=== PATIENT | female | born 1960 | race Caucasian/White ===

== ENCOUNTER 2021-01-08 01:23 | Inpatient (IN) | payer BC, MEDICARE ==
[~2021-01-08] VITALS: Ht 152.4 cm; Wt 81.8 kg
[2021-01-08] MEDS ORDERED: heparin 25,000 UNIT/250ml bag 250 ML IV SCH (01:30)
[2021-01-08] MEDS ORDERED: heparin 10,000 units/1 ML INJ IV PRN (01:30)
[2021-01-08 01:52] LABS: BASOPHILS # (AUTO) 0.1 X10'3 (0-0.2); BASOPHILS % (AUTO) 0.7 % (0-1); EOSINOPHILS % (AUTO) 0 % (0-6); HEMATOCRIT 32.5 % (35.0-45.0); HEMOGLOBIN 10.6 g/dl (12.0-16.0); LYMPHOCYTES # (AUTO) 1.5 X10'3 (1.1-4.8); LYMPHOCYTES % (AUTO) 14.7 % (21-51); MEAN CORPUSCULAR HEMOGLOBIN 26.7 PG (27.0-31.0); MEAN CORPUSCULAR HGB CONC 32.7 g/dL (33.0-36.5); MEAN CORPUSCULAR VOLUME 81.8 FL (78-98); MEAN PLATELET VOLUME 7.8 FL (7.4-10.4); MONOCYTES # (AUTO) 0.4 X10'3 (0-0.9); MONOCYTES % (AUTO) 3.8 % (2-12); NEUTROPHILS # (AUTO) 8.4 X10'3 (1.8-7.7); NEUTROPHILS % (AUTO) 80.8 % (42-75); PLATELET COUNT 338 X10'3 (140-440); RED BLOOD COUNT 3.97 X10'6 (4.20-5.60); RED CELL DISTRIBUTION WIDTH 15.2 % (11.5-14.5); WHITE BLOOD COUNT 10.4 X10'3 (4.5-11.0)
[2021-01-08 02:05] LABS: PARTIAL THROMBOPLASTIN TIME 28 SECONDS (22-32)
[2021-01-08 02:09] LABS: ALANINE AMINOTRANSFERASE 30 U/L (12-78); ALBUMIN 2.6 G/DL (3.4-5.0); ALBUMIN/GLOBULIN RATIO 0.5 (1.1-1.5); ALKALINE PHOSPHATASE 128 IU/L (46-116); ANION GAP 12 (8-16); ASPARTATE AMINO TRANSFERASE 28 U/L (10-37); BILIRUBIN,TOTAL 0.4 MG/DL (0.1-1.0); BLOOD UREA NITROGEN 26 MG/DL (7-18); BUN/CREATININE RATIO 22.6 (6.6-38.0); CALCIUM 8.6 MG/DL (8.5-10.1); CHLORIDE 99 MMOL/L (99-107); CREATININE 1.15 MG/DL (0.40-0.90); GLUCOSE 351 MG/DL (70-104); POTASSIUM 3.9 MMOL/L (3.5-5.1); SODIUM 139 MMOL/L (135-145); TOTAL CARBON DIOXIDE 27.6 MMOL/L (24-32); TOTAL PROTEIN 7.5 G/DL (6.4-8.2); eGFR 48 ML/MIN
[2021-01-08 02:16] LABS: MAGNESIUM 1.8 MG/DL (1.5-2.4)
[2021-01-08] MEDS ORDERED: insulin regular, human 10 units/0.1 ml syringe IV ONE (02:35)
[2021-01-08] MEDS ORDERED: potassium Cl 20 mEq SR tablet PO PRN ×2 (03:15)
[2021-01-08] MEDS ORDERED: acetaminophen 325mg tablet PO PRN (03:15)
[2021-01-08] MEDS ORDERED: PERFLUTREN PROTEIN-A MICROSPHR (Optison) 0.22 MG/ML 3ML VIAL IV PRN (03:15)
[2021-01-08] MEDS ORDERED: potassium Cl 40MEQ/1/2NS 520ml 520 ML IV PRN ×2 (03:15)
[2021-01-08] MEDS ORDERED: magnesium hydroxide 30ml (MOM) UD suspension PO PRN (03:15)
[2021-01-08] MEDS ORDERED: ondansetron/PF 4mg/2ml inj IV PRN (03:15)
[2021-01-08] MEDS ORDERED: mag hydrox/Alum hydrox/simeth 30ml oral suspension PO PRN (03:15)
[2021-01-08] MEDS ORDERED: metoprolol tartrate 50mg tablet PO ONE (03:20)
[2021-01-08] MEDS: nitroGLYCERIN-Tridil 50MG/D5W 250 ML IV SCH (03:21)
[2021-01-08 03:39] LABS: HEMOGLOBIN A1C 13.8 % (4.5-6.2)
[2021-01-08] MEDS ORDERED: DILT-91 PO (03:39)
[2021-01-08] MEDS ORDERED: METF-438 PO (03:39)
[2021-01-08] MEDS ORDERED: CYCL-1 PO (03:39)
[2021-01-08] MEDS ORDERED: METO100T14 PO (03:39)
[2021-01-08] MEDS ORDERED: CLON-330 PO (03:39)
[2021-01-08] MEDS ORDERED: MELO-102 PO (03:39)
[2021-01-08] MEDS ORDERED: LOSA1TAB39 PO (03:39)
[2021-01-08] MEDS ORDERED: GABA600T13 PO (03:39)
[2021-01-08] MEDS ORDERED: LOVA20TA2 PO (04:03)
[2021-01-08] MEDS ORDERED: LANTUS SQ (04:03)
[2021-01-08] MEDS ORDERED: HYDR-3686 PO (04:03)
[2021-01-08] MEDS ORDERED: INSU100I50 SQ (04:03)
[2021-01-08] MEDS ORDERED: morphine 2 MG/ML inj. syringe IV PRN (05:05)
[2021-01-08] MEDS ORDERED: dextrose 50%-water 50ml dispensing syringe IV PRN ×2 (05:10)
[2021-01-08] MEDS ORDERED: dextrose ORAL solution 15 GM/59 ML bottle PO PRN ×2 (05:10)
[2021-01-08] MEDS ORDERED: MESSAGE TO PHARMACY PO ONE (05:10)
[2021-01-08] MEDS ORDERED: glucagon, human recombinant 1mg kit SUBCUT PRN (05:10)
[2021-01-08] MEDS ORDERED: cloNIDine 0.1 mg tablet PO ONE (05:20)
[2021-01-08] MEDS: normal saline 1000ml 1,000 ML IV SCH (05:20)
[2021-01-08] MEDS: morphine 2 MG/ML inj. syringe IV PRN ×2 (05:21→21:30)
--- NOTE | 2021-01-08 05:21 | NUR ---
Patient in room ED 14. I have received report from MARISA GARRISON and had the opportunity to ask questions and assume patient care.
[2021-01-08] MEDS ORDERED: morphine 4 MG/ML inj SYRINge IV ONE (06:20)
[2021-01-08 08:00] VITALS: BP 178/82
[2021-01-08] MEDS ORDERED: metoprolol tartrate 50mg tablet PO SCH (08:00)
[2021-01-08] MEDS ORDERED: epiNEPHrine 0.1mg/ml 10ml syringe ONE (08:00)
[2021-01-08] MEDS ORDERED: atropine 0.1mg/ml 10ml syringe ONE (08:00)
[2021-01-08] MEDS: K and/or MAG REPLACEMENT MC SCH ×2 (08:00→20:00)
--- NOTE | 2021-01-08 08:30 | NUR ---
PAGER ID: [phone] MESSAGE: [id number] JIM. TROP RESULT THIS A.M IS UP TO 0.73. ITZ CASTILLO
[2021-01-08] MEDS: losartan 50mg tablet PO SCH (08:33)
[2021-01-08] MEDS: atorvastatin 10mg tablet PO SCH (08:33)
[2021-01-08] MEDS: hydrOXYzine 25 MG tablet PO SCH ×2 (08:33→18:00)
[2021-01-08] MEDS: gabapentin 300mg capsule PO SCH ×3 (08:34→21:00)
[2021-01-08] MEDS: docusate sod 100mg capsule PO SCH ×2 (08:34→19:43)
[2021-01-08] MEDS: metoprolol tartrate 50mg tablet PO SCH ×2 (08:35→21:01)
[2021-01-08] MEDS: insulin Lispro (HumaLOG) vial - multi-dose SQ SCH ×2 (08:40→12:51)
--- NOTE | 2021-01-08 09:03 | NUR ---
high AM sugar PAGER ID: [phone] MESSAGE: room 3014A Jade Sarkar pt AM blood sugar critically high 452, treated per protocol, asymptomatic, thank you, Nisha GARRISON [id number]
--- NOTE | 2021-01-08 09:48 | NUR ---
home ABX? PAGER ID: [phone] MESSAGE: room 3014A Jade Sarkar, patient reports being on scheduled antibiotics at home (zythro), today is day 3 of her course, not given or scheduled in [facility], continue? thank you, Nisha GARRISON [phone]
[2021-01-08] MEDS ORDERED: AZIT-21 PO (10:10)
--- NOTE | 2021-01-08 10:28 | NUR ---
Home ABX added to med rec PAGER ID: [phone] MESSAGE: room 3014A Jade Sarkar, patients home antibiotics have been added to the medication reconciliation, prescribing MD, dose, and what day she is currently on. Thank you, Nisha GARRISON
[2021-01-08] MEDS ORDERED: METH4TAB81 PO (10:33)
[2021-01-08] MEDS ORDERED: FLUT16SP26 NS (10:35)
[2021-01-08 11:00] VITALS: BP 148/76
[2021-01-08] MEDS: azithromycin 250mg tablet PO SCH ×2 (11:06→12:40)
[2021-01-08] MEDS ORDERED: hydrALAZINE 20mg/ml inj. IV PRN (12:45)
[2021-01-08 13:40] LABS: CHOL/HDL RATIO 4.2 (0.00-4.99); CHOLESTEROL 214 MG/DL (0-200); HDL CHOLESTEROL 51 MG/DL (35-60); LDL CHOLESTEROL 115 MG/DL (50-100); TRIGLYCERIDES 306 MG/DL (20-135)
[2021-01-08] MEDS: sodium bicarbonate (8.4%) inj. 150 MEQ in sodium chloride 0.45% 1,000 ML IV SCH (14:10)
[2021-01-08] MEDS ORDERED: LIDOcaine/PRILOcaine 5gm cream TP ONE (14:30)
[2021-01-08] MEDS ORDERED: verapamil 2.5 mg/ml inj IV ONE (14:51)
[2021-01-08] MEDS ORDERED: midazolam 1 mg/ML 2ml injection ONE (14:51)
[2021-01-08] MEDS ORDERED: nitroGLYCERIN-Tridil 50MG/D5W 250 ML IV ONE (14:51)
[2021-01-08] MEDS ORDERED: heparin 1,000unit/ml 10ml vial 10 ML ONE (14:52)
[2021-01-08] MEDS ORDERED: iohexol 350MG/ML 100ml bottle IV ONE (14:52)
[2021-01-08] MEDS ORDERED: LIDOcaine 1% (10mg/ml)w/preservative injection 20ml MDV ONE (14:52)
[2021-01-08] MEDS ORDERED: fentaNYL/PF 50MCG/1 ML 2ML syringe ONE (14:52)
[2021-01-08] MEDS ORDERED: iohexol 350 MG/ML 50ML vial IV ONE (14:52)
--- NOTE | 2021-01-08 14:52 | NUR ---
CRITICAL LAB PAGER ID: [phone] MESSAGE: ROOM 3014A JUANIS FERNANDEZ, CRITICAL TROPONIN OF 0.92, NOTIFIED ROMI GREGG NP ON PATIENTS CARDIAC CASE
--- NOTE | 2021-01-08 15:29 | NUR ---
DM Consult: Pt hx T2DM A1C 13.8 admit DX NSTEMI hx recent COVID-19 recovering past month and takes 1000mg metformin BID, 25-40 units Lantus BID, and novilin SQ daily per EMR. Noted TG 309, Chol 214, LDL 115 on admit w/ Glu 237 this afternoon down from 452 this AM. Troponin continues to increase and pt remains NPO per EMR. Pt would benefit from DM/heart healthy diet eds once more appropriate prior to discharge. Addendum: 01/08/21 at [address] Amended: Links added.
[2021-01-08] MEDS ORDERED: iohexol 350 MG/1 ML 200ml bottle ONE (16:02)
[2021-01-08] MEDS ORDERED: metoprolol tartrate 1mg/ml inj IV ONE ×4 (16:20→21:15)
[2021-01-08 16:40] VITALS: BP 135/73
[2021-01-08] MEDS ORDERED: cloNIDine 0.1 mg tablet PO PRN (18:05)
[2021-01-08 18:51] LABS: ISTAT HGB ART 10.9 g/dl (12.0-16.0); ISTAT Hct ART 32 %PCV (35-48); ISTAT O2 SATURATION ARTERIAL 93 % (95-98); ISTAT SOURCE ART
[2021-01-08] MEDS ORDERED: LORazepam 2 mg/ml vial IM ONE (19:15)
[2021-01-08] MEDS ORDERED: potassium Cl 20 mEq SR tablet PO STA (19:21)
[2021-01-08] MEDS ORDERED: magnesium 2GM in 50ml NS 50 ML IV ONE (19:25)
[2021-01-08] MEDS ORDERED: amiodarone 150mg/dext, iso-os 100 ML IV ONE (19:30)
[2021-01-08] MEDS: heparin 25,000 UNIT/250ml bag 250 ML IV SCH (20:25)
[2021-01-08] MEDS: insulin glargine (Lantus) pen - multi-dose SQ SCH (21:00)
[2021-01-08] MEDS: amiodarone/D5 360MG/200ML BAG 200 ML IV SCH (21:03)
--- NOTE | 2021-01-08 21:46 | NUR ---
Report was given Aki GARRISON from ICU. Patient is then transferred at 2143.
--- NOTE | 2021-01-08 22:00 | NUR ---
Patient refusing medical treatment. She indicate she wants to leave the hospital.
[2021-01-08] MEDS: quetiapine 100mg tablet PO SCH ×2 (23:00→23:25)
[2021-01-08] MEDS ORDERED: LORazepam 2 mg/ml vial ONE (23:39)
[2021-01-08] MEDS ORDERED: OLANZapine **IM** 10 mg inj. IM ONE (23:45)
--- NOTE | 2021-01-08 23:50 | NUR ---
Unable to start heparin gtt, sodium bicarb gtt and nitro gtt. limited IV access. Patient was wanted to leave the hospital against medical advise.
[2021-01-09] VITALS (23 sets, daily range): BP systolic 89–187; BP diastolic 49–101
[2021-01-09] MEDS ORDERED: nitroGLYCERIN-Tridil 50MG/D5W 250 ML IV SCH (00:05)
[2021-01-09] MEDS: dexmedetomidine/D5W 100mL 100 ML IV SCH ×3 (00:05→18:55)
[2021-01-09] MEDS ORDERED: dexmedetomidin/NS 400mcg/100ml 100 ML IV SCH (00:10)
[2021-01-09] MEDS: sodium bicarbonate (8.4%) inj. 150 MEQ in sodium chloride 0.45% 1,000 ML IV SCH ×2 (01:40→13:10)
--- NOTE | 2021-01-09 03:50 | NUR ---
Patient stood up from commode and fell backward toward the red plastic container as observed by another nurse. Patient did not fall all the way to the floor per nurse.
[2021-01-09] MEDS: amiodarone/D5 360MG/200ML BAG 200 ML IV SCH ×4 (04:10→18:54)
[2021-01-09] MEDS: nitroGLYCERIN-Tridil 50MG/D5W 250 ML IV SCH (04:21)
[2021-01-09] MEDS: docusate sod 100mg capsule PO SCH ×2 (08:00→19:41)
[2021-01-09] MEDS: acetylcysteine sol. 200 MG/ML 4ml vial PO SCH ×2 (08:00→19:55)
[2021-01-09] MEDS: losartan 50mg tablet PO SCH (08:00)
[2021-01-09] MEDS: hydrOXYzine 25 MG tablet PO SCH ×3 (08:00→16:55)
[2021-01-09] MEDS: atorvastatin 10mg tablet PO SCH (08:00)
[2021-01-09] MEDS: gabapentin 300mg capsule PO SCH ×3 (08:00→19:41)
[2021-01-09] MEDS: K and/or MAG REPLACEMENT MC SCH ×2 (08:00→19:42)
[2021-01-09] MEDS: metoprolol tartrate 50mg tablet PO SCH ×2 (08:00→19:36)
--- NOTE | 2021-01-09 10:41 | NUR ---
Received pt lying in bed resting, sitter at bedside. Pt Awakens to voice, oriented to self only. Pt reoriented and redirected but remains uncooperative. Pt is agitated and combative upon assessment. She refuses care and removes equipment, such as BP cuff and Pulse Ox. Oncoming RN reported Pt pulled IVs out and refuses reinsertion. Educated pt on the importance of IV access for medication administration. Educated pt on necessity of medications and interventions but she still refuses. Pt became increasingly agitated and began to threaten staff members, attempts to pull out remaining IV with cardiac gtt infusing, then attempts to get out of bed. Reminded pt of previous fall and redirected her, though not receptive and now combative with staff. Charge nurse and MD notified on unit, Pt placed in restraints for safety. IM medication administered. Reassessed pt q15, pt remains agitated, demands to leave, still unable to correctly answer orientation questions beyond her own name. MD rounded, suggested letting pt rest to lessen anxiety and keep VS stable. Daughter reports pt last bout of AFIB resulted from anxiety attacks. Team decided to hold off on IV re-insertion and lab work until pt is more cooperative, daughter agrees with plan of care. Surgeon rounded as well, met with daughter-POA who continues to change her recollection of events and treatment wishes. Liliya Wang RN
[2021-01-09 12:05] LABS: ABG BASE EXCESS -1.4 mmol/L (-2.0-2.0); ABG HCO3 22.5 mmol/L (22.0-26.0); ABG PCO2 (T) 35.2 mmHg (32.0-45.0); ABG PO2 (T) 169.8 mmHg (75.0-100.0); ALLEN'S TEST POSITIVE; FCOHb 0.3 % (0.0-3.9); FLOW 15 L/min; FMetHb 0.2 % (0.0-1.5); FO2Hb 98.5 % (94-97); TOTAL HEMOGLOBIN 11.9 G/dl (12.0-16.0)
[2021-01-09] MEDS ORDERED: amiodarone 150mg/dext, iso-os 100 ML IV ONE (12:40)
[2021-01-09 12:41] LABS: BASOPHILS % (AUTO) 0.4 % (0-1); EOSINOPHILS # (AUTO) 0.1 X10'3 (0-0.9); EOSINOPHILS % (AUTO) 0.8 % (0-6); HEMATOCRIT 31.8 % (35.0-45.0); HEMOGLOBIN 10.4 g/dl (12.0-16.0); LYMPHOCYTES # (AUTO) 1.3 X10'3 (1.1-4.8); LYMPHOCYTES % (AUTO) 19.4 % (21-51); MEAN CORPUSCULAR HEMOGLOBIN 26.7 PG (27.0-31.0); MEAN CORPUSCULAR HGB CONC 32.5 g/dL (33.0-36.5); MEAN PLATELET VOLUME 7.8 FL (7.4-10.4); MONOCYTES # (AUTO) 0.4 X10'3 (0-0.9); MONOCYTES % (AUTO) 6.4 % (2-12); PLATELET COUNT 274 X10'3 (140-440); RED BLOOD COUNT 3.88 X10'6 (4.20-5.60); RED CELL DISTRIBUTION WIDTH 15.1 % (11.5-14.5); WHITE BLOOD COUNT 6.9 X10'3 (4.5-11.0)
[2021-01-09 12:58] LABS: PARTIAL THROMBOPLASTIN TIME 25 SECONDS (22-32)
[2021-01-09] MEDS ORDERED: potassium Cl 40MEQ/250ML bag 250 ML IV PRN (13:00)
[2021-01-09] MEDS ORDERED: magnesium 4gm in 100ml NS 100 ML IV PRN (13:00)
[2021-01-09] MEDS ORDERED: magnesium 2GM in 50ml NS 50 ML IV PRN (13:00)
[2021-01-09] MEDS ORDERED: potassium Cl 40MEQ/1/2NS 520ml 520 ML IV PRN (13:00)
[2021-01-09] MEDS ORDERED: potassium Cl 20 mEq SR tablet PO PRN (13:00)
[2021-01-09 13:07] LABS: ALANINE AMINOTRANSFERASE 95 U/L (12-78); ALBUMIN 2.2 G/DL (3.4-5.0); ALBUMIN/GLOBULIN RATIO 0.5 (1.1-1.5); ALKALINE PHOSPHATASE 135 IU/L (46-116); ANION GAP 6 (8-16); ASPARTATE AMINO TRANSFERASE 128 U/L (10-37); BILIRUBIN,TOTAL 0.9 MG/DL (0.1-1.0); BLOOD UREA NITROGEN 28 MG/DL (7-18); BUN/CREATININE RATIO 23.7 (6.6-38.0); CALCIUM 8.3 MG/DL (8.5-10.1); CHLORIDE 95 MMOL/L (99-107); CHOL/HDL RATIO 3.1 (0.00-4.99); CHOLESTEROL 183 MG/DL (0-200); CREATININE 1.18 MG/DL (0.40-0.90); HDL CHOLESTEROL 59 MG/DL (35-60); LDL CHOLESTEROL 95 MG/DL (50-100); TOTAL CARBON DIOXIDE 27.3 MMOL/L (24-32); TOTAL PROTEIN 6.7 G/DL (6.4-8.2); TRIGLYCERIDES 155 MG/DL (20-135); eGFR 47 ML/MIN
[2021-01-09 13:17] LABS: GLUCOSE 524 MG/DL (70-104); SODIUM 128 MMOL/L (135-145)
[2021-01-09] MEDS: metoprolol tartrate 1mg/ml inj IV SCH ×2 (14:00→19:35)
[2021-01-09] MEDS: morphine 2 MG/ML inj. syringe IV PRN (14:15)
[2021-01-09] MEDS: insulin Lispro (HumaLOG) vial - multi-dose SQ SCH ×2 (14:18→19:51)
[2021-01-09] MEDS: heparin 10,000 units/1 ML INJ IV PRN ×2 (14:44→22:16)
[2021-01-09 15:22] LABS: MAGNESIUM 1.8 MG/DL (1.5-2.4); PHOSPHORUS 3.9 MG/DL (2.3-4.5)
[2021-01-09] MEDS: aspirin 325mg tablet PO SCH (16:55)
[2021-01-09] MEDS: potassium CL 10mEq/100ml bag 100 ML IV PRN ×2 (17:29→19:59)
--- NOTE | 2021-01-09 18:39 | NUR ---
1250 - Allowed patient to sleep before attempting any additional interventions, per MD orders. Entered pt room to assess mental status, released one restraint and asked pt to state her name and the year ; Pt responded "I'm gonna' alfred you", immediately afterwards pt became unresponsive, appeared to be in VFIB on the monitor ; started chest compressions and called Code blue. Pt stabilized, CVL inserted by MD, new orders placed, family updated.
[2021-01-09] MEDS: potassium Cl 20mEq/100mL bag 100 ML IV PRN (18:54)
--- NOTE | 2021-01-09 19:20 | NUR ---
RESTRAINTS OFF PRIOR TO MY ARRIVAL Addendum: 01/09/21 at 1920 by Iban Lyons RN Amended: Links added.
[2021-01-09] MEDS: azithromycin 250mg tablet PO SCH (19:42)
[2021-01-09] MEDS: insulin glargine (Lantus) pen - multi-dose SQ SCH (19:52)
[2021-01-09] MEDS: heparin 25,000 UNIT/250ml bag 250 ML IV SCH (21:25)
[2021-01-10] VITALS (27 sets, daily range): BP systolic 84–168; BP diastolic 45–112
[2021-01-10] MEDS: hydrOXYzine 25 MG tablet PO SCH ×3 (00:08→16:48)
[2021-01-10] MEDS: sodium bicarbonate (8.4%) inj. 150 MEQ in sodium chloride 0.45% 1,000 ML IV SCH (00:40)
[2021-01-10] MEDS: dexmedetomidine/D5W 100mL 100 ML IV SCH ×3 (00:48→15:22)
[2021-01-10] MEDS: amiodarone/D5 360MG/200ML BAG 200 ML IV SCH ×5 (02:15→23:24)
[2021-01-10] MEDS: normal saline 1000ml 1,000 ML IV SCH (02:17)
[2021-01-10] MEDS: metoprolol tartrate 1mg/ml inj IV SCH ×4 (02:17→17:14)
[2021-01-10 03:14] LABS: BASOPHILS % (AUTO) 0.2 % (0-1); EOSINOPHILS # (AUTO) 0.1 X10'3 (0-0.9); EOSINOPHILS % (AUTO) 1.1 % (0-6); HEMATOCRIT 30.4 % (35.0-45.0); HEMOGLOBIN 10.1 g/dl (12.0-16.0); MEAN CORPUSCULAR HEMOGLOBIN 26.9 PG (27.0-31.0); MEAN CORPUSCULAR HGB CONC 33.3 g/dL (33.0-36.5); MEAN PLATELET VOLUME 7.8 FL (7.4-10.4); MONOCYTES # (AUTO) 0.6 X10'3 (0-0.9); NEUTROPHILS # (AUTO) 7.3 X10'3 (1.8-7.7); NEUTROPHILS % (AUTO) 72.7 % (42-75); PLATELET COUNT 300 X10'3 (140-440); RED BLOOD COUNT 3.75 X10'6 (4.20-5.60); RED CELL DISTRIBUTION WIDTH 15.3 % (11.5-14.5)
[2021-01-10] MEDS: morphine 2 MG/ML inj. syringe IV PRN ×4 (03:27→18:32)
[2021-01-10 03:40] LABS: ALANINE AMINOTRANSFERASE 92 U/L (12-78); ALBUMIN 2.1 G/DL (3.4-5.0); ALBUMIN/GLOBULIN RATIO 0.4 (1.1-1.5); ALKALINE PHOSPHATASE 110 IU/L (46-116); ANION GAP 7 (8-16); ASPARTATE AMINO TRANSFERASE 76 U/L (10-37); BILIRUBIN,TOTAL 0.7 MG/DL (0.1-1.0); BLOOD UREA NITROGEN 32 MG/DL (7-18); BUN/CREATININE RATIO 23.9 (6.6-38.0); CHLORIDE 94 MMOL/L (99-107); CREATININE 1.34 MG/DL (0.40-0.90); GLUCOSE 357 MG/DL (70-104); MAGNESIUM 2.7 MG/DL (1.5-2.4); POTASSIUM 4.1 MMOL/L (3.5-5.1); SODIUM 131 MMOL/L (135-145); TOTAL CARBON DIOXIDE 29.6 MMOL/L (24-32); TOTAL PROTEIN 6.8 G/DL (6.4-8.2); eGFR 40 ML/MIN
[2021-01-10] MEDS: heparin 10,000 units/1 ML INJ IV PRN ×2 (04:29→10:15)
--- NOTE | 2021-01-10 06:15 | NUR ---
Problems reprioritized. Patient report given, questions answered & plan of care reviewed with AM Nurse.
[2021-01-10] MEDS: insulin Lispro (HumaLOG) vial - multi-dose SQ SCH ×2 (07:12→16:37)
[2021-01-10] MEDS: docusate sod 100mg capsule PO SCH ×2 (07:30→20:38)
[2021-01-10] MEDS: metoprolol tartrate 50mg tablet PO SCH (07:31)
[2021-01-10] MEDS: losartan 50mg tablet PO SCH (07:31)
[2021-01-10] MEDS: aspirin 325mg tablet PO SCH (07:31)
[2021-01-10] MEDS: gabapentin 300mg capsule PO SCH ×3 (07:31→20:38)
[2021-01-10] MEDS: atorvastatin 10mg tablet PO SCH (07:31)
[2021-01-10] MEDS: K and/or MAG REPLACEMENT MC SCH ×2 (07:43→20:00)
[2021-01-10] MEDS ORDERED: amiodarone 150mg/dext, iso-os 100 ML IV ONE (07:45)
[2021-01-10] MEDS ORDERED: amiodarone 50MG/ML inj IV ONE (07:45)
[2021-01-10] MEDS: acetylcysteine sol. 200 MG/ML 4ml vial PO SCH ×2 (08:00→20:38)
[2021-01-10] MEDS ORDERED: MESSAGE TO NURSING PO ONE ×5 (09:45→10:00)
[2021-01-10] MEDS ORDERED: dextrose 50%-water 50ml dispensing syringe IV PRN (10:05)
[2021-01-10] MEDS ORDERED: insulin glargine (Lantus) pen - multi-dose SQ PRN (10:05)
[2021-01-10] MEDS ORDERED: insulin glargine (Lantus) pen - multi-dose SQ ONE (10:25)
[2021-01-10] MEDS ORDERED: fentaNYL/PF 50MCG/1 ML 2ML syringe ONE (11:24)
[2021-01-10] MEDS ORDERED: LIDOcaine 1% (10mg/ml)w/preservative injection 20ml MDV ONE (11:24)
[2021-01-10] MEDS ORDERED: midazolam 1 mg/ML 2ml injection ONE (11:24)
[2021-01-10] MEDS ORDERED: heparin 1,000unit/ml 10ml vial 10 ML ONE (11:24)
[2021-01-10] MEDS ORDERED: iohexol 350MG/ML 100ml bottle IV ONE (11:24)
--- NOTE | 2021-01-10 17:41 | NUR ---
Pt complaining of new teeth pain and "flushing" sensation on left neck. Nitroglycerin gtt up titrated, 5 mg metoprolol adminiistered for tachycardia 124, and BP 162/103. 2 mg morphine sulfate IVP administered. Pt report "some" pain relief after [address] Ortiz rounded and requested that Dr Corey be called and informed of teeth pain. Call placed to Dr Corey and voicemail message recorded.
[2021-01-10 18:10] LABS: ABG BASE EXCESS 2.2 mmol/L (-2.0-2.0); ABG HCO3 25.5 mmol/L (22.0-26.0); ABG PCO2 (T) 36.5 mmHg (32.0-45.0); ALLEN'S TEST POSITIVE; FCOHb 0.1 % (0.0-3.9); FLOW 2 L/min; FMetHb 0.1 % (0.0-1.5); FO2Hb 94.8 % (94-97); TOTAL HEMOGLOBIN 11.4 G/dl (12.0-16.0)
[2021-01-10] MEDS ORDERED: potassium Cl 20 mEq/100mL bag IV ONE (18:10)
[2021-01-10] MEDS ORDERED: azithromycin 250mg tablet PO ONE (18:25)
[2021-01-10] MEDS ORDERED: FLU VACC QS2021-22(6MOS UP)/PF 60 MCG/0.5 ML SYRINGE IM ONE (19:40)
[2021-01-10] MEDS: guaiFENesin/codeine phos 10ml UD oral syrup PO PRN (20:37)
[2021-01-10] MEDS: quetiapine 100mg tablet PO SCH (20:41)
[2021-01-10] MEDS: insulin glargine (Lantus) pen - multi-dose SQ SCH (21:00)
[2021-01-10] MEDS: Insulin Reg/NS 100units/100mL 100 ML IV SCH (21:10)
--- NOTE | 2021-01-10 22:00 | NUR ---
Per Dr. Corey decrease Amio to 0.5, Give Albumin 5%/250mL, start Levo if SBP <90 and keep strict I&O's. He would also like a Troponin with morning labs.
[2021-01-10] MEDS ORDERED: albumin (Human) 5% 250ml 250 ML IV ONE (22:15)
[2021-01-10] MEDS: NORepinephrine 8mg/ 250ml NS 250 ML IV SCH (22:20)
[2021-01-10] MEDS: heparin 25,000 UNIT/250ml bag 250 ML IV SCH (22:25)
[2021-01-11] VITALS (41 sets, daily range): BP systolic 102–173; BP diastolic 25–119
[2021-01-11] MEDS: hydrOXYzine 25 MG tablet PO SCH ×3 (00:03→16:10)
[2021-01-11] MEDS: guaiFENesin/codeine phos 10ml UD oral syrup PO PRN (01:42)
[2021-01-11] MEDS: Insulin Reg/NS 100units/100mL 100 ML IV SCH ×2 (01:42→17:15)
[2021-01-11] MEDS: morphine 2 MG/ML inj. syringe IV PRN ×4 (01:56→16:12)
[2021-01-11] MEDS: metoprolol tartrate 1mg/ml inj IV SCH ×3 (02:00→14:00)
[2021-01-11 02:36] LABS: BASOPHILS # (AUTO) 0.1 X10'3 (0-0.2); BASOPHILS % (AUTO) 0.5 % (0-1); EOSINOPHILS # (AUTO) 0.1 X10'3 (0-0.9); EOSINOPHILS % (AUTO) 0.7 % (0-6); HEMATOCRIT 28.8 % (35.0-45.0); HEMOGLOBIN 9.5 g/dl (12.0-16.0); LYMPHOCYTES # (AUTO) 1.8 X10'3 (1.1-4.8); LYMPHOCYTES % (AUTO) 14.1 % (21-51); MEAN CORPUSCULAR HEMOGLOBIN 26.9 PG (27.0-31.0); MEAN CORPUSCULAR HGB CONC 32.9 g/dL (33.0-36.5); MEAN CORPUSCULAR VOLUME 81.7 FL (78-98); MONOCYTES % (AUTO) 7.9 % (2-12); NEUTROPHILS # (AUTO) 9.8 X10'3 (1.8-7.7); NEUTROPHILS % (AUTO) 76.8 % (42-75); PLATELET COUNT 304 X10'3 (140-440); RED BLOOD COUNT 3.53 X10'6 (4.20-5.60); RED CELL DISTRIBUTION WIDTH 15.5 % (11.5-14.5); WHITE BLOOD COUNT 12.8 X10'3 (4.5-11.0)
[2021-01-11 02:57] LABS: ALANINE AMINOTRANSFERASE 172 U/L (12-78); ALBUMIN 2.2 G/DL (3.4-5.0); ALBUMIN/GLOBULIN RATIO 0.5 (1.1-1.5); ALKALINE PHOSPHATASE 259 IU/L (46-116); ANION GAP 8 (8-16); ASPARTATE AMINO TRANSFERASE 237 U/L (10-37); BILIRUBIN,TOTAL 1.1 MG/DL (0.1-1.0); BLOOD UREA NITROGEN 31 MG/DL (7-18); BUN/CREATININE RATIO 22.1 (6.6-38.0); CHLORIDE 97 MMOL/L (99-107); GLUCOSE 296 MG/DL (70-104); POTASSIUM 3.9 MMOL/L (3.5-5.1); SODIUM 133 MMOL/L (135-145); TOTAL CARBON DIOXIDE 27.6 MMOL/L (24-32); TOTAL PROTEIN 6.8 G/DL (6.4-8.2); eGFR 38 ML/MIN
[2021-01-11] MEDS: heparin 25,000 UNIT/250ml bag 250 ML IV SCH ×2 (03:02→18:08)
[2021-01-11 03:03] LABS: TROPONIN I 14.94 NG/ML (0.0-0.05)
--- NOTE | 2021-01-11 03:17 | NUR ---
Called Dr. Corey with Trop 14.94, per MD get another Trop @ 0387
[2021-01-11 06:07] LABS: ISTAT Hct MIX 32 %PCV (35-48); ISTAT O2 SATURATION MIX VENOUS 58 % (60-80); ISTAT SOURCE VEN
--- NOTE | 2021-01-11 06:19 | NUR ---
Problems reprioritized. Patient report given, questions answered & plan of care reviewed with BLADIMIR Ramos.
[2021-01-11] MEDS: K and/or MAG REPLACEMENT MC SCH ×2 (08:00→20:00)
[2021-01-11] MEDS: losartan 50mg tablet PO SCH (08:12)
[2021-01-11] MEDS: docusate sod 100mg capsule PO SCH ×2 (08:12→20:38)
[2021-01-11] MEDS: gabapentin 300mg capsule PO SCH ×3 (08:12→20:37)
[2021-01-11] MEDS: aspirin 325mg tablet PO SCH (08:12)
[2021-01-11] MEDS: atorvastatin 10mg tablet PO SCH (08:12)
[2021-01-11 09:14] LABS: TROPONIN I 32.92 NG/ML (0.0-0.05)
--- NOTE | 2021-01-11 09:23 | NUR ---
Critical Troponin result 32.92 and pBNP [address] Corey. Surgery scheduled for 01/12/21 no new instructions/ orders at this time.
--- NOTE | 2021-01-11 09:37 | NUR ---
RT AT PATIENTS BEDSIDE TO PERFORM PATIENTS BEDSIDE PFT. PATIENT UNABLE TO PERFORM TESTS CORRECTLY. PATENT HAS BALLOON PUMP IN PLACE AND IS UNABLE TO SIT UP IN A OPTIMUM POSITION AND ALSO IS COMPLAINING OF CHEST PAIN DUE TO CHEST COMPRESSIONS. RT SUBMITTED RESULTS FOR MD TO REVIEW. Addendum: 01/11/21 at 0941 by Marilou Tanner RT Amended: Links added.
[2021-01-11] MEDS ORDERED: MESSAGE TO NURSING PO ONE (10:00)
[2021-01-11 10:14] LABS: CLARITY,URINE CLOUDY (Clear); COLOR,URINE YELLOW (Yellow); GLUCOSE, URINE 100 mg/dl (Neg); PROTEIN,URINE 30 mg/dl (Neg); UA COLLECTION TYPE NON-SPECIFIED
[2021-01-11 10:15] LABS: KETONES,URINE NEGATIVE (Neg); LEUKOCYTE ESTERASE ,URINE NEGATIVE (Neg); NITRITES, URINE NEGATIVE (Neg); OCCULT BLOOD,URINE LARGE (Neg)
[2021-01-11 10:16] LABS: HYALINE CASTS >30 /LPF (NEGATIVE); SQUAMOUS EPITHELIAL CELL,UR FEW /LPF (FEW)
[2021-01-11 10:18] LABS: BACTERIA,URINE 2+ /HPF (Neg); RBC,URINE TNTC /HPF (0-2)
[2021-01-11] MEDS ORDERED: ringers solution, lacted 1,000 ML IV ONE (10:20)
[2021-01-11] MEDS: acetylcysteine sol. 200 MG/ML 4ml vial PO SCH ×2 (11:55→20:38)
[2021-01-11] MEDS: amiodarone/D5 360MG/200ML BAG 200 ML IV SCH ×3 (12:13→20:57)
[2021-01-11] MEDS: NORepinephrine 8mg/ 250ml NS 250 ML IV SCH (14:38)
[2021-01-11] MEDS: heparin 10,000 units/1 ML INJ IV PRN (15:32)
[2021-01-11] MEDS ORDERED: ondansetron 4mg rapidly disintigrating tab PO PRN (16:10)
[2021-01-11] MEDS ORDERED: amiodarone 150mg/dext, iso-os 100 ML IV ONE (17:30)
[2021-01-11] MEDS: dexmedetomidine/D5W 100mL 100 ML IV SCH (17:56)
--- NOTE | 2021-01-11 18:15 | NUR ---
Patient in room ICU 2038. I have received report from Richard GARRISON and had the opportunity to ask questions and assume patient care. Patient resting in bed mildly anxious when awake, HR in 40s in atrial fib with BP MAP consistently in 130s-140s. Orders obtained by Richard GARRISON by Dr. Corey, will follow MD orders and will continue to monitor patient.
[2021-01-11] MEDS ORDERED: magnesium 2GM in 50ml NS 50 ML IV ONE (18:20)
[2021-01-11] MEDS ORDERED: metoprolol tartrate 1mg/ml inj IV ONE ×2 (18:20→18:45)
--- NOTE | 2021-01-11 18:32 | NUR ---
Pt went into a rapid afib at [address] Castorena ordered 150 mg Amiodarone bolus and amiodarone rate of 1mg/hr. amiodarone administered and precedex gtt restarted to control pt anxiety. Call was then placed to Dr Corey and a-fib c RVR and amiodarone administration reported as well as results. 2 mg metoprolol IVP and 2 gm Magnesium Sulfate Iv ordered. Dr Corey requested a call back if his orders are not effective in bringing HR under control within 15 mins. orders communicated to YEHUDA GARRISON.
--- NOTE | 2021-01-11 18:37 | NUR ---
Problems reprioritized. Patient report given, questions answered & plan of care reviewed with BLADIMIR Caro.
--- NOTE | 2021-01-11 18:42 | NUR ---
Dr Bell informed of Dr Corey's orders. Additional 3 mg of metoprolol IVP ordered. Communicated new order to BLADIMIR Cash
[2021-01-11] MEDS: nitroGLYCERIN-Tridil 50MG/D5W 250 ML IV SCH (18:49)
[2021-01-11] MEDS ORDERED: metoprolol tartrate 12.5mg (1/2 tablet) PO SCH (20:00)
[2021-01-11] MEDS: quetiapine 100mg tablet PO SCH (20:38)
[2021-01-11] MEDS: mupirocin 2% ointment 22GM NS SCH (20:39)
[2021-01-11] MEDS: insulin glargine (Lantus) pen - multi-dose SQ SCH (21:00)
[2021-01-11] MEDS: potassium Cl 20mEq/100mL bag 100 ML IV PRN (21:44)
[2021-01-11] MEDS ORDERED: albumin (Human) 5% 250ml 250 ML IV ONE (22:00)
[2021-01-12] VITALS (14 sets, daily range): BP systolic 80–146; BP diastolic 55–111
[2021-01-12] MEDS: hydrOXYzine 25 MG tablet PO SCH ×2 (00:32→08:00)
[2021-01-12] MEDS: amiodarone/D5 360MG/200ML BAG 200 ML IV SCH (02:42)
[2021-01-12] MEDS: normal saline 1000ml 1,000 ML IV SCH (03:15)
[2021-01-12 03:53] LABS: BASOPHILS % (AUTO) 0.2 % (0-1); EOSINOPHILS % (AUTO) 0.1 % (0-6); HEMATOCRIT 32.4 % (35.0-45.0); HEMOGLOBIN 10.4 g/dl (12.0-16.0); LYMPHOCYTES # (AUTO) 0.8 X10'3 (1.1-4.8); LYMPHOCYTES % (AUTO) 6.8 % (21-51); MEAN CORPUSCULAR HEMOGLOBIN 26.4 PG (27.0-31.0); MEAN CORPUSCULAR HGB CONC 32.1 g/dL (33.0-36.5); MEAN CORPUSCULAR VOLUME 82.4 FL (78-98); MEAN PLATELET VOLUME 8.1 FL (7.4-10.4); MONOCYTES # (AUTO) 0.7 X10'3 (0-0.9); MONOCYTES % (AUTO) 6.4 % (2-12); NEUTROPHILS # (AUTO) 9.6 X10'3 (1.8-7.7); NEUTROPHILS % (AUTO) 86.5 % (42-75); PLATELET COUNT 299 X10'3 (140-440); RED BLOOD COUNT 3.93 X10'6 (4.20-5.60); RED CELL DISTRIBUTION WIDTH 15.2 % (11.5-14.5); WHITE BLOOD COUNT 11.1 X10'3 (4.5-11.0)
[2021-01-12 04:05] LABS: ALANINE AMINOTRANSFERASE 268 U/L (12-78); ALBUMIN 2.1 G/DL (3.4-5.0); ALBUMIN/GLOBULIN RATIO 0.5 (1.1-1.5); ALKALINE PHOSPHATASE 393 IU/L (46-116); ANION GAP 10 (8-16); ASPARTATE AMINO TRANSFERASE 330 U/L (10-37); BLOOD UREA NITROGEN 19 MG/DL (7-18); CHLORIDE 97 MMOL/L (99-107); CREATININE 1.12 MG/DL (0.40-0.90); GLUCOSE 154 MG/DL (70-104); POTASSIUM 3.8 MMOL/L (3.5-5.1); SODIUM 133 MMOL/L (135-145); TOTAL CARBON DIOXIDE 25.8 MMOL/L (24-32); TOTAL PROTEIN 6.6 G/DL (6.4-8.2); eGFR 49 ML/MIN
[2021-01-12] MEDS ORDERED: MALTODEXTRIN/FRUCTOSE 0.68 KCAL/ML LIQUID 296ML BOTTLE PO ONE (05:00)
[2021-01-12] MEDS: dexmedetomidine/D5W 100mL 100 ML IV SCH (05:01)
[2021-01-12] MEDS: morphine 2 MG/ML inj. syringe IV PRN ×2 (05:15→07:57)
[2021-01-12] MEDS ORDERED: Insulin Reg/NS 100units/100mL 100 ML IV SCH (05:30)
[2021-01-12] MEDS ORDERED: vancomycin/NS 1 GM ADD-VANTAGE 250 ML IV ONE (05:30)
[2021-01-12] MEDS ORDERED: gabapentin 400mg capsule PO ONE ×2 (05:30)
[2021-01-12] MEDS ORDERED: cefazolin/dext.iso 2gm/50ml 50 ML IV ONE (05:30)
[2021-01-12] MEDS ORDERED: LORazepam 2 mg/ml vial IV ONE (06:00)
[2021-01-12] MEDS ORDERED: famotidine 20mg tablet PO ONE ×2 (06:00→08:15)
--- NOTE | 2021-01-12 06:15 | NUR ---
Problems reprioritized. Patient report given, questions answered & plan of care reviewed with Richard GARRISON.
[2021-01-12] MEDS ORDERED: albumin (Human) 5% 250ml 250 ML IV ONE ×2 (06:40)
[2021-01-12] MEDS ORDERED: ceFAZolin 1000mg inj ONE ×2 (06:49→17:51)
[2021-01-12 07:22] LABS: BASOPHILS # (AUTO) 0.1 X10'3 (0-0.2); BASOPHILS % (AUTO) 0.5 % (0-1); EOSINOPHILS % (AUTO) 0.1 % (0-6); HEMATOCRIT 31.7 % (35.0-45.0); HEMOGLOBIN 10.3 g/dl (12.0-16.0); LYMPHOCYTES # (AUTO) 1.3 X10'3 (1.1-4.8); LYMPHOCYTES % (AUTO) 11.4 % (21-51); MEAN CORPUSCULAR HEMOGLOBIN 26.8 PG (27.0-31.0); MEAN CORPUSCULAR HGB CONC 32.6 g/dL (33.0-36.5); MEAN PLATELET VOLUME 7.6 FL (7.4-10.4); NEUTROPHILS # (AUTO) 8.7 X10'3 (1.8-7.7); PLATELET COUNT 268 X10'3 (140-440); RED BLOOD COUNT 3.86 X10'6 (4.20-5.60); RED CELL DISTRIBUTION WIDTH 15.4 % (11.5-14.5)
[2021-01-12] MEDS: guaiFENesin/codeine phos 10ml UD oral syrup PO PRN (07:32)
[2021-01-12 07:35] LABS: ALANINE AMINOTRANSFERASE 241 U/L (12-78); ALBUMIN/GLOBULIN RATIO 0.5 (1.1-1.5); ALKALINE PHOSPHATASE 409 IU/L (46-116); ANION GAP 9 (8-16); ASPARTATE AMINO TRANSFERASE 317 U/L (10-37); BILIRUBIN,TOTAL 1.3 MG/DL (0.1-1.0); BLOOD UREA NITROGEN 19 MG/DL (7-18); BUN/CREATININE RATIO 16.5 (6.6-38.0); CALCIUM 7.9 MG/DL (8.5-10.1); CHLORIDE 99 MMOL/L (99-107); CREATININE 1.15 MG/DL (0.40-0.90); GLUCOSE 121 MG/DL (70-104); POTASSIUM 4.2 MMOL/L (3.5-5.1); SODIUM 134 MMOL/L (135-145); TOTAL CARBON DIOXIDE 25.9 MMOL/L (24-32); TOTAL PROTEIN 6.3 G/DL (6.4-8.2); eGFR 48 ML/MIN
[2021-01-12] MEDS: K and/or MAG REPLACEMENT MC SCH (08:00)
[2021-01-12] MEDS: mupirocin 2% ointment 22GM NS SCH (08:00)
[2021-01-12] MEDS: losartan 50mg tablet PO SCH (08:00)
[2021-01-12] MEDS ORDERED: albumin (human) 25% 100 ML IV solution IV ONE (08:00)
[2021-01-12] MEDS ORDERED: furosemide 40mg/4ml inj ONE (08:00)
[2021-01-12] MEDS ORDERED: methylPREDNISolone sod. succ. 500mg inj ONE (08:00)
[2021-01-12] MEDS ORDERED: magnesium sulf 1 GM/2 ML ONE (08:00)
[2021-01-12] MEDS ORDERED: sodium bicarbonate (8.4%) 1 mEq/ml syringe ONE (08:00)
[2021-01-12] MEDS: docusate sod 100mg capsule PO SCH (08:00)
[2021-01-12] MEDS ORDERED: NORepinephrine bitart. inj. IV ONE (08:00)
[2021-01-12] MEDS: atorvastatin 10mg tablet PO SCH (08:00)
[2021-01-12] MEDS ORDERED: aminocaproic acid 250 MG/1 ML inj. ONE (08:00)
[2021-01-12] MEDS ORDERED: mupirocin 2% ointment 22GM NS SCH (08:00)
[2021-01-12] MEDS ORDERED: LIDOcaine 2% (20 mg/ml) 5ml cardiac syringe ONE (08:00)
[2021-01-12] MEDS ORDERED: potassium Cl 2 mEq/ml inj IV ONE (08:00)
[2021-01-12] MEDS ORDERED: heparin 10,000 units/1 ML INJ ONE (08:00)
[2021-01-12] MEDS ORDERED: calcium chloride 100 MG/1 ML inj IV ONE (08:00)
[2021-01-12] MEDS: gabapentin 300mg capsule PO SCH (08:00)
[2021-01-12] MEDS ORDERED: SUFENTANIL CITRATE 50 MCG/ML 2ml ampule IV ONE (08:25)
[2021-01-12] MEDS ORDERED: midazolam 1 mg/ML 2ml injection ONE (08:27)
[2021-01-12] MEDS: aspirin 325mg tablet PO SCH (08:30)
[2021-01-12] MEDS: acetylcysteine sol. 200 MG/ML 4ml vial PO SCH (08:44)
[2021-01-12] MEDS ORDERED: heparin 10,000 units/1 ML INJ IR ONE (09:00)
[2021-01-12] MEDS ORDERED: papaverine 30 mg/ml 2ml inj. IA ONE (09:00)
[2021-01-12 09:26] LABS: TROPONIN I 39.77 NG/ML (0.0-0.05)
[2021-01-12 09:43] LABS: ABG BASE EXCESS -1.8 mmol/L (-2.0-2.0); ABG HCO3 22.8 mmol/L (22.0-26.0); ABG OXYGEN SATURATION 98.4 % (94-97); ABG PCO2 38.1 mmHg (32.0-45.0); ABG PO2 114.1 mmHg (75.0-100.0); CL (ABG) 96 mmol/L (98-110); FCOHb 0.7 % (0.0-3.9); FMetHb 0.3 % (0.0-1.5); FO2Hb 97.4 % (94-97); GLUCOSE (ABG) 221 mg/dl (70-105); IONIZED CA (ABG) 1.06 mmol/L (1.10-1.43); K (ABG) 3.8 mmol/L (3.5-5.0); TOTAL HEMOGLOBIN 10.8 G/dl (12.0-16.0)
[2021-01-12 10:11] LABS: ABG BASE EXCESS VENOUS -0.1 mmol/L (-2.0 - 2.0); ABG HCO3 VENOUS 24.9 mmol/L (21.0-28.0); ABG PCO2 VENOUS 41.9 mmHg (38.0-51.0); ABG PO2 VENOUS 31.1 mmHg (25.0-35.0); CL (ABG) 94 mmol/L (98-110); FCOHb VENOUS 1.7 % (0.0- 3.9); FHHb VENOUS 41.1 %; FMetHb VENOUS 0.3 % (0.0 - 0.5); FO2Hb VENOUS 56.9 %; GLUCOSE (ABG) 222 mg/dl (70-105); IONIZED CA (ABG) 0.89 mmol/L (1.10-1.43); K (ABG) 3.2 mmol/L (3.5-5.0)
[2021-01-12] MEDS ORDERED: ipratropium/albuterol 3ml nebule IH PRN (10:15)
[2021-01-12 10:20] LABS: ABG BASE EXCESS -4.1 mmol/L (-2.0-2.0); ABG HCO3 21.8 mmol/L (22.0-26.0); ABG OXYGEN SATURATION 99.8 % (94-97); ABG PCO2 43.2 mmHg (32.0-45.0); ABG PO2 451.3 mmHg (75.0-100.0); CL (ABG) 94 mmol/L (98-110); FCOHb 0.8 % (0.0-3.9); FMetHb 0.3 % (0.0-1.5); FO2Hb 98.7 % (94-97); GLUCOSE (ABG) 238 mg/dl (70-105); IONIZED CA (ABG) 0.89 mmol/L (1.10-1.43); K (ABG) 3.5 mmol/L (3.5-5.0); TOTAL HEMOGLOBIN 8.4 G/dl (12.0-16.0)
[2021-01-12 11:05] LABS: ABG BASE EXCESS -4.1 mmol/L (-2.0-2.0); ABG HCO3 20.9 mmol/L (22.0-26.0); ABG OXYGEN SATURATION 99.9 % (94-97); ABG PCO2 37.5 mmHg (32.0-45.0); ABG PO2 391.5 mmHg (75.0-100.0); CL (ABG) 98 mmol/L (98-110); FCOHb 0.8 % (0.0-3.9); FO2Hb 99.1 % (94-97); GLUCOSE (ABG) 203 mg/dl (70-105); K (ABG) 4.2 mmol/L (3.5-5.0); TOTAL HEMOGLOBIN 9.3 G/dl (12.0-16.0)
[2021-01-12 11:38] LABS: ABG BASE EXCESS -2.5 mmol/L (-2.0-2.0); ABG HCO3 22.1 mmol/L (22.0-26.0); ABG OXYGEN SATURATION 99.8 % (94-97); ABG PCO2 37.2 mmHg (32.0-45.0); ABG PO2 408.2 mmHg (75.0-100.0); CL (ABG) 99 mmol/L (98-110); FCOHb 0.7 % (0.0-3.9); FMetHb 0.1 % (0.0-1.5); GLUCOSE (ABG) 210 mg/dl (70-105); IONIZED CA (ABG) 0.98 mmol/L (1.10-1.43); K (ABG) 3.6 mmol/L (3.5-5.0); TOTAL HEMOGLOBIN 9.2 G/dl (12.0-16.0)
--- NOTE | 2021-01-12 11:42 | NUR ---
Malnutrition consult: Pt hx T2DM A1C 13.8 admit DX NSTEMI hx recent COVID-19 recovering past month. Pt s/p code blue 01/09; pt also going for CABG today. Pt only had ~75% of one meal this admit. No recent wt hx and pt has no visible signs of wasting observed. Pt w/ generalized 1+ edema, no wounds documented. At this time pt does not meet minimum criteria for malnutrition, will continue to monitor Pt would benefit from DM/CABG diet eds once more appropriate prior to discharge. Recs: 1. [facility] as tolerated s/p CABG 2. Monitor need for ONS 3. Bowel care per rx 4. Weekly wts Addendum: 01/12/21 at [address] Amended: Links added.
[2021-01-12 12:05] LABS: ABG BASE EXCESS -1.8 mmol/L (-2.0-2.0); ABG HCO3 23.2 mmol/L (22.0-26.0); ABG OXYGEN SATURATION 99.8 % (94-97); ABG PCO2 40.5 mmHg (32.0-45.0); CL (ABG) 100 mmol/L (98-110); FCOHb 0.7 % (0.0-3.9); FMetHb 0.3 % (0.0-1.5); FO2Hb 98.8 % (94-97); GLUCOSE (ABG) 206 mg/dl (70-105); IONIZED CA (ABG) 0.97 mmol/L (1.10-1.43); K (ABG) 3.5 mmol/L (3.5-5.0)
[2021-01-12 12:31] LABS: ABG BASE EXCESS 0.7 mmol/L (-2.0-2.0); ABG HCO3 24.2 mmol/L (22.0-26.0); ABG OXYGEN SATURATION 99.7 % (94-97); ABG PCO2 33.9 mmHg (32.0-45.0); ABG PO2 301.1 mmHg (75.0-100.0); CL (ABG) 97 mmol/L (98-110); FCOHb 1.1 % (0.0-3.9); FMetHb 0.3 % (0.0-1.5); FO2Hb 98.3 % (94-97); GLUCOSE (ABG) 193 mg/dl (70-105); IONIZED CA (ABG) 0.92 mmol/L (1.10-1.43); TOTAL HEMOGLOBIN 7.8 G/dl (12.0-16.0)
[2021-01-12 12:49] LABS: ACT @ 1.70 U 267 SEC (193-297); ACT @ 2.84 U 346 SEC (260-420); BASELINE ACT 118 SEC (101-148); PATIENT WEIGHT 81.0k KG
[2021-01-12 13:00] LABS: ABG BASE EXCESS 0.3 mmol/L (-2.0-2.0); ABG HCO3 25.4 mmol/L (22.0-26.0); ABG OXYGEN SATURATION 99.3 % (94-97); ABG PCO2 43.1 mmHg (32.0-45.0); ABG PO2 197.7 mmHg (75.0-100.0); CL (ABG) 99 mmol/L (98-110); FCOHb 1.2 % (0.0-3.9); FMetHb 0.3 % (0.0-1.5); FO2Hb 97.8 % (94-97); GLUCOSE (ABG) 194 mg/dl (70-105); IONIZED CA (ABG) 1.11 mmol/L (1.10-1.43); K (ABG) 4.2 mmol/L (3.5-5.0); TOTAL HEMOGLOBIN 7.9 G/dl (12.0-16.0)
[2021-01-12] MEDS ORDERED: gabapentin 300mg capsule PO SCH (13:00)
[2021-01-12 13:33] LABS: ABG BASE EXCESS 0.6 mmol/L (-2.0-2.0); ABG HCO3 24.1 mmol/L (22.0-26.0); ABG OXYGEN SATURATION 99.6 % (94-97); ABG PCO2 33.8 mmHg (32.0-45.0); ABG PO2 390.1 mmHg (75.0-100.0); CL (ABG) 99 mmol/L (98-110); FCOHb 0.7 % (0.0-3.9); FMetHb 0.3 % (0.0-1.5); FO2Hb 98.6 % (94-97); GLUCOSE (ABG) 179 mg/dl (70-105); IONIZED CA (ABG) 1.12 mmol/L (1.10-1.43); K (ABG) 3.8 mmol/L (3.5-5.0); TOTAL HEMOGLOBIN 8.2 G/dl (12.0-16.0)
[2021-01-12 14:19] LABS: ABG BASE EXCESS -2.7 mmol/L (-2.0-2.0); ABG HCO3 21.9 mmol/L (22.0-26.0); ABG OXYGEN SATURATION 99.7 % (94-97); ABG PCO2 36.6 mmHg (32.0-45.0); ABG PO2 294.7 mmHg (75.0-100.0); CL (ABG) 99 mmol/L (98-110); FCOHb 0.8 % (0.0-3.9); FMetHb 0.3 % (0.0-1.5); FO2Hb 98.6 % (94-97); GLUCOSE (ABG) 211 mg/dl (70-105); IONIZED CA (ABG) 1.11 mmol/L (1.10-1.43); K (ABG) 3.2 mmol/L (3.5-5.0); TOTAL HEMOGLOBIN 8.1 G/dl (12.0-16.0)
[2021-01-12 14:44] LABS: ABG BASE EXCESS -4.3 mmol/L (-2.0-2.0); ABG HCO3 20.7 mmol/L (22.0-26.0); ABG OXYGEN SATURATION 99.6 % (94-97); ABG PCO2 37.3 mmHg (32.0-45.0); ABG PO2 329.3 mmHg (75.0-100.0); CL (ABG) 99 mmol/L (98-110); FCOHb 0.8 % (0.0-3.9); FMetHb 0.3 % (0.0-1.5); FO2Hb 98.5 % (94-97); GLUCOSE (ABG) 204 mg/dl (70-105); IONIZED CA (ABG) 1.12 mmol/L (1.10-1.43); K (ABG) 3.2 mmol/L (3.5-5.0); TOTAL HEMOGLOBIN 8.1 G/dl (12.0-16.0)
[2021-01-12 15:39] LABS: ABG BASE EXCESS -3.6 mmol/L (-2.0-2.0); ABG HCO3 21.5 mmol/L (22.0-26.0); ABG OXYGEN SATURATION 99.4 % (94-97); ABG PCO2 38.6 mmHg (32.0-45.0); ABG PO2 221.2 mmHg (75.0-100.0); CL (ABG) 101 mmol/L (98-110); FCOHb 0.8 % (0.0-3.9); FMetHb 0.3 % (0.0-1.5); FO2Hb 98.3 % (94-97); GLUCOSE (ABG) 290 mg/dl (70-105); IONIZED CA (ABG) 1.29 mmol/L (1.10-1.43); K (ABG) 3.3 mmol/L (3.5-5.0); TOTAL HEMOGLOBIN 8.1 G/dl (12.0-16.0)
[2021-01-12 16:05] LABS: ABG BASE EXCESS VENOUS -8.2 mmol/L (-2.0 - 2.0); ABG HCO3 VENOUS 18.4 mmol/L (21.0-28.0); ABG PCO2 VENOUS 42.8 mmHg (38.0-51.0); CL (ABG) 105 mmol/L (98-110); FMetHb VENOUS 0.3 % (0.0 - 0.5); FO2Hb VENOUS 70.7 %; GLUCOSE (ABG) 285 mg/dl (70-105); IONIZED CA (ABG) 2.18 mmol/L (1.10-1.43); K (ABG) 3.1 mmol/L (3.5-5.0); TOTAL HEMOGLOBIN 8.3 G/dl (12.0-16.0)
[2021-01-12 16:07] LABS: ACTIVATED CLOTTING TIME 136 SEC (101-148)
[2021-01-12 16:54] LABS: ABG BASE EXCESS -14.3 mmol/L (-2.0-2.0); ABG HCO3 13.4 mmol/L (22.0-26.0); ABG OXYGEN SATURATION 93.4 % (94-97); ABG PCO2 38.6 mmHg (32.0-45.0); ABG PO2 88.2 mmHg (75.0-100.0); CL (ABG) 103 mmol/L (98-110); FCOHb 0.5 % (0.0-3.9); FMetHb 0.3 % (0.0-1.5); FO2Hb 92.7 % (94-97); GLUCOSE (ABG) 322 mg/dl (70-105); IONIZED CA (ABG) 1.38 mmol/L (1.10-1.43); K (ABG) 3.6 mmol/L (3.5-5.0); TOTAL HEMOGLOBIN 8.8 G/dl (12.0-16.0)
[2021-01-12] MEDS ORDERED: epiNEPHrine 0.1mg/ml 10ml syringe ONE (17:51)
[2021-01-12] MEDS ORDERED: epiNEPHrine 1 mg/ml inj ONE (17:51)
[2021-01-12] MEDS ORDERED: rocuronium 10mg/ml inj IV ONE (17:51)
[2021-01-12] MEDS ORDERED: LIDOcaine 2% (20mg/ml) 5ml vial ONE (17:51)
[2021-01-12] MEDS ORDERED: albuterol 60 PUFF/8GM Inhaler IH ONE (17:51)
[2021-01-12] MEDS ORDERED: phenylephrine 10mg/ml inj. ONE (17:51)
[2021-01-12] MEDS ORDERED: etomidate 2mg/ml inj. ONE (17:51)
== END 2021-01-13 00:48 | DRG 233 ==
LOC: ER 01:24 → ED HOLD 03:18 → PCU 3S 07:07 → ICU 2S 21:19
PROVIDERS: ADMIT Internal Medicine; ATTEND Internal Medicine
PROC: 4A023N8 Measurement of Cardiac Sampling and Pressure, Bilateral, Percutaneous Approach (ICD-10-PCS; principal; 2021-01-08)
PROC: B2111ZZ Fluoroscopy of Multiple Coronary Arteries using Low Osmolar Contrast (ICD-10-PCS; 2021-01-08)
PROC: B2151ZZ Fluoroscopy of Left Heart using Low Osmolar Contrast (ICD-10-PCS; 2021-01-08)
PROC: B3101ZZ Fluoroscopy of Thoracic Aorta using Low Osmolar Contrast (ICD-10-PCS; 2021-01-08)
PROC: 5A12012 Performance of Cardiac Output, Single, Manual (ICD-10-PCS; 2021-01-09)
PROC: 5A2204Z Restoration of Cardiac Rhythm, Single (ICD-10-PCS; 2021-01-09)
PROC: 5A02210 Assistance with Cardiac Output using Balloon Pump, Continuous (ICD-10-PCS; 2021-01-10)
PROC: 3E02340 Introduction of Influenza Vaccine into Muscle, Percutaneous Approach (ICD-10-PCS; 2021-01-10)
PROC: 30233N1 Transfusion of Nonautologous Red Blood Cells into Peripheral Vein, Percutaneous Approach (ICD-10-PCS; 2021-01-11)
PROC: 30233K1 Transfusion of Nonautologous Frozen Plasma into Peripheral Vein, Percutaneous Approach (ICD-10-PCS; 2021-01-12)
PROC: 30233R1 Transfusion of Nonautologous Platelets into Peripheral Vein, Percutaneous Approach (ICD-10-PCS; 2021-01-12)
PROC: 02100Z9 Bypass Coronary Artery, One Artery from Left Internal Mammary, Open Approach (ICD-10-PCS; 2021-01-13)
PROC: 06BP4ZZ Excision of Right Saphenous Vein, Percutaneous Endoscopic Approach (ICD-10-PCS; 2021-01-13)
PROC: 021209W Bypass Coronary Artery, Three Arteries from Aorta with Autologous Venous Tissue, Open Approach (ICD-10-PCS; 2021-01-13)
PROC: 5A1221Z Performance of Cardiac Output, Continuous (ICD-10-PCS; 2021-01-13)
DX: I21.4 Non-ST elevation (NSTEMI) myocardial infarction (principal); U07.1 COVID-19; K86.1 Other chronic pancreatitis; N17.9 Acute kidney failure, unspecified; I47.2 Ventricular tachycardia; I49.01 Ventricular fibrillation; E11.65 Type 2 diabetes mellitus with hyperglycemia; E78.00 Pure hypercholesterolemia, unspecified; F17.210 Nicotine dependence, cigarettes, uncomplicated; F41.9 Anxiety disorder, unspecified; G47.33 Obstructive sleep apnea (adult) (pediatric); F32.A Depression, unspecified; G89.29 Other chronic pain; J32.9 Chronic sinusitis, unspecified; I25.10 Atherosclerotic heart disease of native coronary artery without angina pectoris; I12.9 Hypertensive chronic kidney disease with stage 1 through stage 4 chronic kidney disease, or unspecified chronic kidney disease; J45.909 Unspecified asthma, uncomplicated; E78.5 Hyperlipidemia, unspecified; E11.22 Type 2 diabetes mellitus with diabetic chronic kidney disease; E66.9 Obesity, unspecified; I48.0 Paroxysmal atrial fibrillation; Z60.2 Problems related to living alone; I46.9 Cardiac arrest, cause unspecified; N18.30 Chronic kidney disease, stage 3 unspecified; Z82.49 Family history of ischemic heart disease and other diseases of the circulatory system; Z83.3 Family history of diabetes mellitus; Z87.01 Personal history of pneumonia (recurrent); Z68.35 Body mass index [BMI] 35.0-35.9, adult; Z90.710 Acquired absence of both cervix and uterus; Z91.14 Patient's other noncompliance with medication regimen; Z23 Encounter for immunization; Z88.8 Allergy status to other drugs, medicaments and biological substances; Z90.49 Acquired absence of other specified parts of digestive tract; Z98.891 History of uterine scar from previous surgery; Z79.899 Other long term (current) drug therapy; Z79.4 Long term (current) use of insulin; I25.2 Old myocardial infarction
CPT/HCPCS: 0232T; 33967; 93306; 93308; 93312; 93325; 93460; 93567; 96365; 96375; 99285; 36415; 36430; 36600; 71045; 76937; 80053; 80061; 81001; 82330; 82435; 82803; 82947; 82948; 83036; 83605; 83735; 83880; 84100; 84132; 84295; 84484; 85014; 85018; 85025; 85347; 85379; 85610; 85730; 86885; 86900; 86901; 86920; 87081; 87088; 87635; 93005; 93880; 93971; 93975; 94010; 94760; 99152; 99153; A4618; A4620; A5120; A6250; A6258; A6402; A6449; A7000; A7048; C1725; C1751; C1769; C1894; G0378; J0171; J0461; J0690; J1644; J1815; J1940; J2001; J2060; J2150; J2250; J2270; J2370; J2405; J2440; J2930; J3010; J3370; J3475; J3480; J3490; J7030; J7040; J7050; J7120; P9016; P9035; P9045; P9047; P9059; Q0177; Q9967